=== PATIENT | female | born 1995 | race Two or more races ===

== ENCOUNTER 2024-02-10 23:43 | Emergency (ER) | payer OTHER ==
[~2024-02-10] VITALS: Ht 162.6 cm; Wt 81.6 kg
[2024-02-11 01:40] LABS: PH,URINE 5.5 (5.0-8.0); URINE APPEARANCE Clear; URINE BILIRRUBIN Negative (NEGATIVE); URINE BLOOD NHT; URINE COLOR Yellow; URINE GLUCOSE Negative (NEGATIVE); URINE KETONE Trace (NEGATIVE); URINE LEUKOCYTE Trace; URINE NITRATE Negative; URINE PROTEIN Negative (NEGATIVE); URINE UROBILINOGEN 0.2 E.U./dl
[2024-02-11 01:41] LABS: HEMATOCRIT 42.9 % (36.0-45.00); HEMOGLOBIN 14.1 g/dL (12.0-15.00); MEAN CELL VOLUME 85.7 fL (80.00-100.00); MEAN CORPUSCULAR HEMOGLOBIN 28.2 pg (27.00-32.0); MEAN CORPUSCULAR HGB CONC 32.9 g/dl (32.0-36.0); PLATELET COUNT 264 K/uL (150-450); RED BLOOD COUNT 5.01 M/uL (4.00-6.00); RED CELL DISTRIBUTION WIDTH 13.5 % (11.5-14.5)
[2024-02-11 01:44] LABS: URINE BACTERIA 4572.7 uL (0.0-1933); URINE EPITHELIAL CELLS 46.2 uL (0.0-38.8); URINE RBC 4.1 uL (0.0-20.8); URINE WBC 88.8 uL (0.0-23.2)
[2024-02-11 02:22] LABS: URINE CAST 0.58 uL (0.0-1.40)
== END 2024-02-11 04:45 | disposition home or self-care (01) ==
LOC: ER 23:45
PROVIDERS: General Practice
DX: O20.8 Other hemorrhage in early pregnancy (principal); Z3A.01 Less than 8 weeks gestation of pregnancy; R10.9 Unspecified abdominal pain

== ENCOUNTER 2024-02-20 20:56 | Emergency (ER) | payer OTHER ==
[~2024-02-20] VITALS: Ht 162.6 cm; Wt 81.6 kg
[2024-02-20] MEDS ORDERED: SYNTHROID150 MCG PO (21:06)
[2024-02-20] MEDS ORDERED: PRENATAL + DHA1 EAC1 PO (21:06)
[2024-02-20 21:08] VITALS: BP 138/87; O2SAT 100
[2024-02-20 22:17] LABS: HEMATOCRIT 41.5 % (36.0-45.00); HEMOGLOBIN 14.3 g/dL (12.0-15.00); MEAN CELL VOLUME 83.4 fL (80.00-100.00); MEAN CORPUSCULAR HEMOGLOBIN 28.7 pg (27.00-32.0); MEAN CORPUSCULAR HGB CONC 34.4 g/dl (32.0-36.0); PLATELET COUNT 235 K/uL (150-450); RED BLOOD COUNT 4.98 M/uL (4.00-6.00); RED CELL DISTRIBUTION WIDTH 13.5 % (11.5-14.5)
== END 2024-02-20 23:13 | disposition home or self-care (01) ==
LOC: ER 20:58
PROVIDERS: Emergency Medicine
DX: O20.8 Other hemorrhage in early pregnancy (principal); Z3A.01 Less than 8 weeks gestation of pregnancy; N89.8 Other specified noninflammatory disorders of vagina

== ENCOUNTER 2024-04-04 11:28 | Outpatient (CLI) | payer OTHER ==
[~2024-04-04 11:28] MED LIST: PRENATAL + DHA1 EAC1 PO; SYNTHROID150 MCG PO
== END 2024-04-04 11:30 | disposition home or self-care (01) ==
LOC: PRENATAL 11:28
PROVIDERS: ATTEND Obstetrics & Gynecology Maternal & Fetal Medicine
DX: O36.80X0 Pregnancy with inconclusive fetal viability, not applicable or unspecified (principal); Z36.82 Encounter for antenatal screening for nuchal translucency; Z14.8 Genetic carrier of other disease; Z3A.11 11 weeks gestation of pregnancy

== ENCOUNTER → 2024-06-05 12:33 | Outpatient (CLI) | payer OTHER | END | disposition home or self-care (01) | LOC: PRENATAL 12:33 | PROVIDERS: ATTEND Obstetrics & Gynecology Maternal & Fetal Medicine | DX: O44.00 Complete placenta previa NOS or without hemorrhage, unspecified trimester (principal); O43.90 Unspecified placental disorder, unspecified trimester; Z3A.20 20 weeks gestation of pregnancy ==

== ENCOUNTER → 2024-07-25 09:40 | Outpatient (CLI) | payer OTHER | END | disposition home or self-care (01) | LOC: PRENATAL 09:40 | PROVIDERS: ATTEND Obstetrics & Gynecology Maternal & Fetal Medicine | DX: O26.849 Uterine size-date discrepancy, unspecified trimester (principal); O99.280 Endocrine, nutritional and metabolic diseases complicating pregnancy, unspecified trimester; O43.90 Unspecified placental disorder, unspecified trimester; Z3A.28 28 weeks gestation of pregnancy ==

== ENCOUNTER 2024-08-08 19:43 | Emergency (ER) | payer OTHER ==
[~2024-08-08] VITALS: Ht 162.6 cm; Wt 90.7 kg
[2024-08-08] MEDS ORDERED: BUTALB/ACETAMINOPHEN/CAFFEINE 1 TAB TABLET PO ONE ×2 (20:30→20:44)
[2024-08-08 21:09] LABS: URINE APPEARANCE Cloudy; URINE BILIRRUBIN Negative (NEGATIVE); URINE BLOOD Negative; URINE COLOR Dark Yellow; URINE GLUCOSE Negative (NEGATIVE); URINE KETONE Trace (NEGATIVE); URINE LEUKOCYTE Large; URINE NITRATE Negative; URINE PROTEIN 30 (NEGATIVE)
[2024-08-08 21:13] LABS: URINE EPITHELIAL CELLS 50.1 uL (0.0-38.8); URINE RBC 9.2 uL (0.0-20.8); URINE WBC 462.1 uL (0.0-23.2)
[2024-08-08 21:50] LABS: BASO % 0.3 % (0.1-1.2); EOS # 0.06 (0.04-0.54); EOS % 0.8 % (0.7-7.0); HEMATOCRIT 32.5 % (34.1-44.9); LYMPH # 2.37 (1.18-3.74); MEAN CORPUSCULAR HEMOGLOBIN 29.1 pg (25.6-32.2); MONO # 0.38 (0.24-0.82); MONO % 5.1 % (4.7-12.5); NEUT # 4.52 (1.56-6.13); NEUT % 61.1 % (34.0-71.1); PLATELET COUNT 169 K/uL (163-369); RED BLOOD COUNT 3.78 M/uL (3.93-5.22); RED CELL DISTRIBUTION WIDTH 13.1 % (11.6-14.4)
[2024-08-08 22:00] LABS: TYPE CELLS SQUAMOUS; URINE CAST 1.03 uL (0.0-1.40); URINE CRYSTALS FEW /HPF; URINE MUCUS MODERATE; URINE YEAST FEW /hpf
[2024-08-08 22:05] LABS: INFLUENZA A AG NEGATIVE (NEGATIVE); INFLUENZA B AG NEGATIVE (NEGATIVE)
[2024-08-08] MEDS ORDERED: CEFTRIAXONE SODIUM 1,000 MG VIAL ONE (22:40)
[2024-08-08] MEDS ORDERED: CEFTRIAXONE SODIUM 1,000 MG VIAL IM ONE (22:45)
[2024-08-08] MEDS ORDERED: CEPHALEXIN500 MG PO (22:46)
[2024-08-08] MEDS ORDERED: MONISTAT 745 GM VAG (22:46)
== END 2024-08-08 22:53 | disposition home or self-care (01) ==
LOC: ER 20:13
PROVIDERS: General Practice
DX: O23.593 Infection of other part of genital tract in pregnancy, third trimester (principal); Z3A.30 30 weeks gestation of pregnancy; N39.0 Urinary tract infection, site not specified; R30.0 Dysuria; Z91.013 Allergy to seafood

== ENCOUNTER 2024-09-11 09:33 | Outpatient (CLI) | payer OTHER ==
[~2024-09-11 09:33] MED LIST changes: +CEPHALEXIN500 MG PO; +MONISTAT 745 GM VAG
== END 2024-09-11 09:36 | disposition home or self-care (01) ==
LOC: PRENATAL 09:33
DX: O26.849 Uterine size-date discrepancy, unspecified trimester (principal); O36.8199 Decreased fetal movements, unspecified trimester, other fetus; O99.280 Endocrine, nutritional and metabolic diseases complicating pregnancy, unspecified trimester; O43.90 Unspecified placental disorder, unspecified trimester; Z3A.35 35 weeks gestation of pregnancy